=== PATIENT | male | born 1965 ===

== ENCOUNTER 2021-06-17 17:08 | Inpatient (IN) | payer OTHER ==
[~2021-06-17] VITALS: Ht 182.9 cm; Wt 107.9 kg
[2021-06-17] MEDS ORDERED: HYDROCORTISONE 100 MG INJ. ONE (17:25)
--- NOTE | 2021-06-17 17:26 | NUR ---
PT [facility]. 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 PT CURRENTLY ONLY RESPONDING TO VERBAL STIMULI, PT A&OX3. PT CURRENTLY 60/30S, EDMD AWARE. 18G L EJ ESTABLISHED BY EMS. PT RESTING IN [facility], ALL MONITORING IN PLACE, CXR DONE. WCTM.
[2021-06-17] MEDS ORDERED: PLEASE ENTER ALLERGIES MC SCH (17:30)
[2021-06-17] MEDS ORDERED: SODIUM CHLORIDE FLUSH 10ML SYR IVF ONE (17:30)
[2021-06-17 18:11] LABS: BASOPHILS % (AUTO) 1 % (0-1); EOSINOPHILS % (AUTO) 3 % (1-7); LYMPHOCYTES % (AUTO) 17 % (22-44); MEAN CORPUSCULAR HEMOGLOBIN 31.2 pg (27.5-34.5); MEAN CORPUSCULAR HGB CONC 32.9 g/dL (33.2-36.2); MEAN PLATELET VOLUME 7.3 fL (7.4-10.4); MONOCYTES % (AUTO) 7 % (2-9); NEUTROPHILS % (AUTO) 72 % (42-75); PLATELET COUNT 198 x10^3/uL (130-400); RED BLOOD COUNT 2.61 x10^6/uL (4.38-5.82)
[2021-06-17 18:21] LABS: ALANINE AMINOTRANSFERASE 8 U/L (12-78); ALBUMIN 1.5 g/dL (3.4-5.0); ANION GAP 7 mmol/L (5-15); CALCIUM 6.8 mg/dL (8.5-10.1); CHLORIDE 109 mmol/L (98-107); CREATININE 0.85 mg/dL (0.7-1.3)
[2021-06-17] MEDS ORDERED: SODIUM CHLORIDE 0.9%, 500ML IVBOLUS ONE ×2 (18:30)
[2021-06-17] MEDS ORDERED: CEFEPIME 1 GM in DEXTROSE 5% 50 ML IV ONE (18:30)
[2021-06-17] MEDS ORDERED: HYDROCORTISONE 100 MG INJ. IVPush ONE (18:30)
[2021-06-17] MEDS ORDERED: MAGNESIUM SULFATE PMX 4GM/100M 100 ML IVPB ONE (18:30)
[2021-06-17] MEDS ORDERED: VANCOMYCIN PER PHARMACY MC ONE (18:30)
[2021-06-17 18:32] LABS: ALKALINE PHOSPHATASE 75 U/L (45-117); BILIRUBIN,TOTAL 0.3 mg/dL (0.2-1.0); TOTAL PROTEIN 5.3 g/dL (6.4-8.2)
[2021-06-17] MEDS ORDERED: VANCOMYCIN 2,500 MG in SODIUM CHLORIDE 0.9% 500 ML IV ONE (19:00)
[2021-06-17] MEDS ORDERED: NOREPINEPHRINE 8 MG in SODIUM CHLORIDE 0.9% 242 ML IV PRN (19:00)
[2021-06-17] MEDS ORDERED: MAGNESIUM SULFATE PMX 4GM/100M 100 ML ONE (19:07)
--- NOTE | 2021-06-17 19:25 | NUR ---
PT CONTINUES TO HAVE BP 70/40S. EDMD AWARE. EDMD AT BEDSIDE FOR CENTRAL LINE PLACEMENT AT THIS TIME. PT MOVED TO TR01 AT THIS TIME. PT RESTING IN [place], MONITORING IN PLACE, NADN AT THIS TIME, PT STILL AWAKENS TO VERBAL STIMULI, A&OX3, WCTM.
[2021-06-17 20:30] LABS: MICROSCOPIC INDICATED
--- NOTE | 2021-06-17 20:55 | NUR ---
PT MAINTAINING MAP ABOVE 65 WITHOUT LEVOPHED AT THIS TIME. PT RESTING IN [facility], MONITORING IN PLACE, NADN AT THIS TIME, REPORT TO МАРИ[facility] SM[facility], PT TO BE TRANSPORTED TO ROOM 486 AT THIS TIME.
[2021-06-17] MEDS ORDERED: ONDANSETRON 2MG/ML, 2ML IVPush PRN (21:00)
[2021-06-17] MEDS ORDERED: VANCOMYCIN PER PHARMACY MC PRN (21:00)
[2021-06-17] MEDS ORDERED: BISACODYL 10 MG SUPP PR PRN (21:00)
[2021-06-17 21:27] VITALS: BP 126/83
[2021-06-17] MEDS ORDERED: PHARMACOKINETIC MONITORING MC PRN (21:30)
[2021-06-17] MEDS ORDERED: PHARMACOKINETIC CONSULTATION MC ONE (21:30)
[2021-06-17] MEDS: SODIUM CHLORIDE 0.9% 1,000 ML IV SCH (22:23)
[2021-06-18 02:20] VITALS: BP 120/64
[2021-06-18] MEDS: SODIUM CHLORIDE 0.9% 1,000 ML IV SCH ×3 (05:04→23:48)
[2021-06-18 07:03] VITALS: BP 150/83
[2021-06-18] MEDS: VANCOMYCIN 2,000 MG in SODIUM CHLORIDE 0.9% 500 ML IV SCH ×2 (07:43→21:22)
[2021-06-18 11:45] LABS: BASOPHILS % (AUTO) 1 % (0-1); EOSINOPHILS % (AUTO) 6 % (1-7); LYMPHOCYTES % (AUTO) 21 % (22-44); MEAN CORPUSCULAR HEMOGLOBIN 31.1 pg (27.5-34.5); MEAN CORPUSCULAR HGB CONC 32.8 g/dL (33.2-36.2); MEAN PLATELET VOLUME 7.7 fL (7.4-10.4); MONOCYTES % (AUTO) 7 % (2-9); NEUTROPHILS % (AUTO) 65 % (42-75); PLATELET COUNT 216 x10^3/uL (130-400); RED CELL DISTRIBUTION WIDTH 18.1 % (9.4-14.8)
[2021-06-18 11:47] LABS: CLOSTRIDIUM DIFFICILE ANTIGEN NEGATIVE; CLOSTRIDIUM DIFFICILE TOXIN NEGATIVE (Negative)
[2021-06-18] MEDS: CEFTRIAXONE 1,000 MG in DEXTROSE 5% 50 ML IVPB SCH (11:49)
[2021-06-18 11:53] LABS: ALANINE AMINOTRANSFERASE 10 U/L (12-78); ALBUMIN 1.8 g/dL (3.4-5.0); ANION GAP 8 mmol/L (5-15); CHLORIDE 111 mmol/L (98-107); CREATININE 0.71 mg/dL (0.7-1.3)
[2021-06-18 11:55] LABS: ALKALINE PHOSPHATASE 71 U/L (45-117); BILIRUBIN,TOTAL 0.5 mg/dL (0.2-1.0); TOTAL PROTEIN 6.1 g/dL (6.4-8.2)
[2021-06-18] MEDS: HYDROCORTISONE 20 MG TABLET NG SCH ×3 (12:00→21:31)
[2021-06-18 14:05] VITALS: BP 148/83
[2021-06-18] MEDS ORDERED: CHOL1CRY3 PO ×2 (17:29)
[2021-06-18] MEDS ORDERED: HYDR20TA24 PO (17:29)
[2021-06-18] MEDS ORDERED: ENOX30DI3 SQ (17:29)
[2021-06-18] MEDS ORDERED: HYDR28OI3 PO ×2 (17:29)
[2021-06-18] MEDS ORDERED: CYAN5POW PO (17:29)
[2021-06-18] MEDS ORDERED: LACT1.5C PO (17:29)
[2021-06-18] MEDS ORDERED: ATOR20TA86 PO (17:29)
[2021-06-18] MEDS ORDERED: LEVO50CA4 PO (17:29)
[2021-06-18] MEDS ORDERED: ASPI81TA14 PO (17:29)
[2021-06-18] MEDS ORDERED: ATEN25TA PO (17:29)
[2021-06-18] MEDS: OMEPRAZOLE 20 MG CAPSULE.DR NG SCH ×2 (17:37→21:31)
[2021-06-18] MEDS: FLUDROCORTISONE 0.1 MG TABLET NG SCH ×2 (17:39→21:32)
[2021-06-18] MEDS ORDERED: LEVE1500 PO (18:27)
[2021-06-18] MEDS ORDERED: MULT-658 PO (18:27)
[2021-06-18] MEDS ORDERED: SERT20OR5 PO (18:27)
[2021-06-18] MEDS ORDERED: [UNRECOGNIZED DRUG - CODE] PO (18:27)
[2021-06-18] MEDS ORDERED: FLUD5POW PO (18:27)
[2021-06-18] MEDS ORDERED: INSU100V8 SQ (18:27)
[2021-06-18] MEDS ORDERED: OMEP5POW PO (18:27)
[2021-06-18] MEDS: LEVETIRACETAM 100 MG/ML ORAL SOL NG SCH (21:31)
[2021-06-18] MEDS: ATORVASTATIN 10 MG TABLET NG SCH (21:32)
[2021-06-18 21:48] VITALS: BP 134/83
[2021-06-19 01:31] VITALS: BP 120/85
[2021-06-19] MEDS: LEVOTHYROXINE 50 MCG TABLET NG SCH (06:18)
[2021-06-19 08:29] VITALS: BP 158/94
[2021-06-19] MEDS: CEFTRIAXONE 1,000 MG in DEXTROSE 5% 50 ML IVPB SCH (08:53)
[2021-06-19] MEDS: OMEPRAZOLE 20 MG CAPSULE.DR NG SCH ×2 (08:53→21:11)
[2021-06-19] MEDS: FLUDROCORTISONE 0.1 MG TABLET NG SCH ×2 (08:53→21:11)
[2021-06-19] MEDS: LEVETIRACETAM 100 MG/ML ORAL SOL NG SCH ×2 (08:54→21:11)
[2021-06-19] MEDS: HYDROCORTISONE 20 MG TABLET NG SCH ×3 (08:54→21:11)
[2021-06-19 09:27] LABS: BASOPHILS % (AUTO) 1 % (0-1); EOSINOPHILS % (AUTO) 4 % (1-7); LYMPHOCYTES % (AUTO) 22 % (22-44); MEAN CORPUSCULAR HEMOGLOBIN 31.5 pg (27.5-34.5); MEAN CORPUSCULAR HGB CONC 32.9 g/dL (33.2-36.2); MEAN PLATELET VOLUME 7.6 fL (7.4-10.4); MONOCYTES % (AUTO) 7 % (2-9); NEUTROPHILS % (AUTO) 66 % (42-75); PLATELET COUNT 227 x10^3/uL (130-400); RED BLOOD COUNT 2.95 x10^6/uL (4.38-5.82); RED CELL DISTRIBUTION WIDTH 18.2 % (9.4-14.8)
[2021-06-19 09:39] LABS: ALBUMIN 1.9 g/dL (3.4-5.0); ANION GAP 8 mmol/L (5-15); CALCIUM 8.2 mg/dL (8.5-10.1); CHLORIDE 111 mmol/L (98-107)
[2021-06-19 09:42] LABS: ALANINE AMINOTRANSFERASE 12 U/L (12-78); ALKALINE PHOSPHATASE 73 U/L (45-117); BILIRUBIN,TOTAL 0.5 mg/dL (0.2-1.0); CREATININE 0.68 mg/dL (0.7-1.3); TOTAL PROTEIN 6.5 g/dL (6.4-8.2)
[2021-06-19 10:10] LABS: VANCOMYCIN,TROUGH 37.5 mcg/mL (5.0-10.0)
[2021-06-19 14:00] VITALS: BP 157/92
[2021-06-19] MEDS ORDERED: MAGNESIUM SULFATE PMX 2GM/50ML 50 ML IV ONE (16:00)
[2021-06-19] MEDS ORDERED: LOPERAMIDE 2 MG CAPSULE PO PRN (16:00)
[2021-06-19 19:08] VITALS: BP 159/96
[2021-06-19] MEDS: ATORVASTATIN 10 MG TABLET NG SCH (21:11)
[2021-06-19] MEDS ORDERED: DIPHENHYDRAMINE 25 MG CAPSULE PO PRN (22:00)
[2021-06-20 00:43] VITALS: BP 158/91
[2021-06-20 05:56] LABS: BASOPHILS % (AUTO) 1 % (0-1); EOSINOPHILS % (AUTO) 4 % (1-7); LYMPHOCYTES % (AUTO) 24 % (22-44); MEAN CORPUSCULAR HGB CONC 32.8 g/dL (33.2-36.2); MEAN PLATELET VOLUME 7.5 fL (7.4-10.4); MONOCYTES % (AUTO) 7 % (2-9); NEUTROPHILS % (AUTO) 64 % (42-75); PLATELET COUNT 205 x10^3/uL (130-400); RED BLOOD COUNT 2.76 x10^6/uL (4.38-5.82)
[2021-06-20 05:59] LABS: CHLORIDE 112 mmol/L (98-107)
[2021-06-20 06:14] LABS: ALANINE AMINOTRANSFERASE 10 U/L (12-78); ALBUMIN 1.8 g/dL (3.4-5.0); ALKALINE PHOSPHATASE 69 U/L (45-117); ANION GAP 7 mmol/L (5-15); BILIRUBIN,TOTAL 0.4 mg/dL (0.2-1.0); CALCIUM 8.2 mg/dL (8.5-10.1); CREATININE 0.68 mg/dL (0.7-1.3); TOTAL PROTEIN 6.1 g/dL (6.4-8.2)
[2021-06-20] MEDS: LEVOTHYROXINE 50 MCG TABLET NG SCH (06:16)
[2021-06-20] MEDS ORDERED: MAGNESIUM SULFATE PMX 2GM/50ML 50 ML IV ONE (06:30)
[2021-06-20] MEDS ORDERED: MAGNESIUM SULFATE PMX 2GM/50ML 50 ML ONE (06:34)
[2021-06-20 08:32] VITALS: BP 174/102
[2021-06-20] MEDS: CEFTRIAXONE 1,000 MG in DEXTROSE 5% 50 ML IVPB SCH (09:37)
[2021-06-20] MEDS: HYDROCORTISONE 20 MG TABLET NG SCH ×2 (09:37→12:50)
[2021-06-20] MEDS: FLUDROCORTISONE 0.1 MG TABLET NG SCH (09:37)
[2021-06-20] MEDS: OMEPRAZOLE 20 MG CAPSULE.DR NG SCH (09:38)
[2021-06-20] MEDS: LEVETIRACETAM 100 MG/ML ORAL SOL NG SCH (09:38)
[2021-06-20] MEDS ORDERED: AMLODIPINE 5 MG TABLET PO SCH (10:00)
[2021-06-20 11:20] VITALS: BP 164/99
[2021-06-20 12:16] VITALS: BP 173/111
[2021-06-20] MEDS ORDERED: LEVE100S6 PO (13:05)
[2021-06-20] MEDS ORDERED: AMLO-150 PO (13:05)
[2021-06-20] MEDS ORDERED: HYDR20TA PO ×3 (13:05)
[2021-06-20] MEDS ORDERED: MAGN400T50 PO (13:05)
[2021-06-20] MEDS ORDERED: CEPH500T PO (13:05)
[2021-06-20] MEDS ORDERED: FLUD0.1T PO (13:05)
[2021-06-20 14:29] VITALS: BP 162/99
== END 2021-06-20 15:19 | DRG 314 ==
LOC: ED 20:49 → EDIP 20:56 → 4EST 21:10
PROVIDERS: ADMIT Internal Medicine; ATTEND Family Medicine
PROC: 02H633Z Insertion of Infusion Device into Right Atrium, Percutaneous Approach (ICD-10-PCS; principal; 2021-06-17)
DX: I95.9 Hypotension, unspecified (principal); E43 Unspecified severe protein-calorie malnutrition; G93.1 Anoxic brain damage, not elsewhere classified; E27.49 Other adrenocortical insufficiency; C74.90 Malignant neoplasm of unspecified part of unspecified adrenal gland; N39.0 Urinary tract infection, site not specified; K92.2 Gastrointestinal hemorrhage, unspecified; B96.1 Klebsiella pneumoniae [K. pneumoniae] as the cause of diseases classified elsewhere; D64.9 Anemia, unspecified; E03.9 Hypothyroidism, unspecified; E66.9 Obesity, unspecified; E83.42 Hypomagnesemia; I25.10 Atherosclerotic heart disease of native coronary artery without angina pectoris; R13.10 Dysphagia, unspecified; R53.81 Other malaise; S06.890A Other specified intracranial injury without loss of consciousness, initial encounter; Y93.89 Activity, other specified; Z68.32 Body mass index [BMI] 32.0-32.9, adult; Z86.19 Personal history of other infectious and parasitic diseases; Z86.74 Personal history of sudden cardiac arrest; Y92.89 Other specified places as the place of occurrence of the external cause; Y99.8 Other external cause status
CPT/HCPCS: 36415; 70450; 71045; 74018; 74230; 80053; 80202; 81001; 82533; 83605; 83735; 84443; 85025; 86850; 86900; 87040; 87077; 87086; 87186; 87324; 93005; 96365; 96366; 96367; 99291; G0378; J0692; J0696; J3370; J1720; J3475; J7030; J7040; Q0163